=== PATIENT | female | born 1950 | race Caucasian/White ===

== ENCOUNTER → 2020-05-29 10:32 | Outpatient (CLI) | payer MEDICARE, BC | END | disposition home or self-care (01) | LOC: D.HCCARDIO 10:32 | PROVIDERS: ATTEND Internal Medicine Cardiovascular Disease | DX: I25.10 Atherosclerotic heart disease of native coronary artery without angina pectoris (principal) ==

== ENCOUNTER 2020-06-21 07:13 | Day surgery (SDC) | payer MEDICARE, BC ==
[~2020-06-21] VITALS: Ht 149.9 cm; Wt 89.1 kg
--- NOTE | ~2020-06-21 | HEMODYNAMI ---
PATIENT:UMAIR PATE MEDICAL RECORD: [id number] : 52 LOCATION:[facility] ADMISSION DATE: 06/21/20 Generatedon:06/21/20209:51 Patient name: UMAIR PATE Patient #: [id number] SSN: : 1950 Date of study: 06/21/2020 Page: Of Hemodynamic Procedure Report Patient Data Patient Demographics Procedure consent was obtained First Name: UMAIR Gender: Female Last Name: HERLINDA : 1950 Patient #: [id number] Age: 69 year(s) Race: Additional ID: [id number] Contact details [address]: [address] [place] [address] State: [place] City: [place] Zip code: [address] Past Medical History Allergies Allergen Reaction Date Comments Reported Other allergy 06/21/2020 CIPROFLOXACIN, IODINE, KEFLEX, LEVAQUIN Admission Admission Data Admission Date: 06/21/2020 Admission Time: 7:13 Arrival Date: 06/21/2020 Arrival Time: 0:00 Height (in.): 60 BSA: 1.84 (m2) Height (cm.): 152.4 BMI: 37.89 (kg/m2) Weight (lbs.): 194 Weight (kg.): 88 Lab Results Lab Result Date: 06/21/2020 Lab Result Time: 0:00 Biochemistry Name Units Result Min Max BUN mg/dl 27 --(----)-* 7 18 Creatinine mg/dl 1.2 --(---*)-- 0.6 1.3 eGFR ml/min 47 *-(----)-- 90 120 NONAFRICAN CBC Name Units Result Min Max Hematocrit % 39.7 -*(----)-- 42 54 Hemoglobin g/dl 12.6 -*(----)-- 13.5 17.5 Procedure Procedure Types Cath Procedure Diagnostic Procedure [facility] w/Coronaries Sedation Charges Moderate Sedation up to 30 minutes PCI Procedure Coronary Stent Coronary Stent Initial Hemochron ACT Test Procedure Description Procedure Date Procedure Date: 06/21/2020 Procedure Start Time: 9:20 Procedure End Time: 9:49 Procedure Staff Name Function Jaylon Zaldivar MD Performing Physician Karla Gale RT Monitor Jaja Bland RT Scrub Hussain Blackman RN Nurse Procedure Data Cath Procedure Fluoroscopy Diagnostic fluoroscopy Total fluoroscopy Time: 4.1 time: 4.1 min min Diagnostic fluoroscopy Total fluoroscopy dose: 741 dose: 741 mGy mGy Contrast Material Contrast Material Type Amount (ml) Isovue 300 73 Entry Location Entry Primary Successful Side Size Upsize Upsize Entry Closure Succes sful Closure Location (Fr) 1 (Fr) 2 (Fr) Remarks Device Remarks Femoral Right 5 Fr 6 Fr Exoseal artery Short Estimated blood loss: 10 ml Diagnostic catheters Device Type Used For End Catheter Placement MULTIPACK JL 4.0 5Fr Procedure catheter MULTIPACK 3DRC 5Fr Procedure catheter MULTIPACK Pigtail 5 Fr Procedure catheter Procedure Complications No complications Procedure Medications Medication Administration Route Dosage Oxygen etCO2 Nasal cannula 2 l/min Lidocaine 2% added to field 20 Heparin Flush Bag added to field 2 bags (1000units/500ml NS) 0.9% NaCl I.V. 100 ml/hr Zofran I.V. 4 mg Versed I.V. 2 mg Versed I.V. 1 mg Fentanyl I.V. 100 mcg Fentanyl I.V. 50 mcg Heparin Bolus I.V. 8500 units Versed I.V. 1 mg Fentanyl I.V. 50 mcg Hemodynamics Rest BSA: 1.84 (m2) HGB: 12.6 (g/dl) O2 Consumption: Estimated: 197.16 (ml/min) O2 Co nsumption indexed: Estimated:107.15 (ml/min/m) Heart Rate: 108 (bpm) Pressure Samples Time Site Value (mmHg) Purpose Heart Use Rate(bpm) 9:27 LV 156/3,22 Snapshot 88 Gradients Valve Time Site Site Mean SEP/DFP Peak To Heart Use 1 2 (mmHg) (sec/min) Peak Rate (mmHg) (bpm) Aortic 9:28 LV AO 90 Snapshots Pre Cath Intra NCS Post Cath Vital Signs Time Heart Resp SPO2 etCO2 NIBP (mmHg) Rhythm Pain Sedation Rate (ipm) (%) (mmHg) Status Level (bpm) 9:03:14 108 16 95 0 178/86(135) NSR 0 (11) 10(A) , No pain 9:07:50 103 29 93 0 167/84(116) NSR 0 (11) 10(A) , No pain 9:12:27 100 26 93 0 164/76(129) NSR 0 (11) 10(A) , No pain 9:16:55 88 18 93 0 148/72(122) NSR 0 (11) 10(A) , No pain 9:21:21 82 17 93 40.4 150/74(114) NSR 0 (11) 9(A) , No pain 9:25:52 82 31 95 33.7 147/77(120) NSR 0 (11) 9(A) , No pain 9:30:26 88 15 96 37.4 136/73(116) NSR 0 (11) 10(A) , No pain 9:34:52 82 13 96 30.7 145/67(106) NSR 0 (11) 9(A) , No pain 9:39:21 86 15 96 32.2 143/72(97) NSR 0 (11) 10(A) , No pain 9:45:01 84 15 97 36.7 147/71(106) NSR 0 (11) 10(A) , No pain 9:50:16 83 14 98 37.4 145/76(102) NSR 0 (11) 10(A) , No pain Medications Time Medication Route Dose Verified Delivered Reason Notes Effectiveness by by 8:56:18 Oxygen etCO2 2 Jaylon Buffie used for Nasal l/min Zen Blackman RN procedure cannula 8:56:25 Lidocaine 2% added 20ml Jaylon Jaylon for local to vial Zen Zaldivar MD anesthetic field 8:56:35 Heparin Flush added 2 Jaylon Buffie used for Bag to bags Zen Blackman RN procedure (1000units/500ml field NS) 8:56:43 0.9% NaCl I.V. 100 Jaylon Buffie Per physician ml/hr Zen Blackman RN 9:05:09 Zofran I.V. 4 mg Jaylon Buffie Per physician Zen Blackman RN 9:15:50 Versed I.V. 2 mg Jaylon Buffie for sedation Zen Blackman RN 9:15:59 Fentanyl I.V. 100 Jaylon Buffie for sedation [facility] [place] Zen Blackman RN 9:20:51 Versed I.V. 1 mg Jaylon Buffie for sedation Zen Blackman RN 9:21:00 Fentanyl I.V. 50 Jaylon Buffie for sedation mcg Zen Blackman RN 9:32:20 Heparin Bolus I.V. 8500 Jaylon Buffie for verifi ed units Zen Blackman RN anticoagulation with dr zaldivar 9:37:39 Versed I.V. 1 mg Jaylon Buffie for sedation Zen Blackman RN 9:37:43 Fentanyl I.V. 50 Jaylon Buffie for sedation mcg Zen Blackman RN Procedure Log Time Note 8:30:43 Informed consent obtained and on chart 8:42:07 Procedure Status Elective Heart Cath (OP). 8:42:08 Time tracking: Regular hours (M-F 7:00 - 5:00) 8:42:11 Plan of Care:Hemodynamics will remain stable., Cardiac rhythm will remain stable., Comfort level will be maintained., Respiratory function will remain adequate., Patient/ family verbilizes understanding of procedure., Procedure tolerated without complication., Recovers from procedure without complications.. 8:42:12 Hussain Blackman RN sent for patient. Start room use. 8:42:22 H&P Date Dictated: 05/23/2020 Within 30 days and on chart., H&P Addendum completed by physician on day of procedure. (MUST COMPLETE FOR ALL OUTPATIENTS). 8:42:58 Patient allergic to Other allergyCIPROFLOXACIN, IODINE, KEFLEX, LEVAQUIN 8:44:17 Patient Weight : 194 lbs 8:44:43 Patient Height : 60 inches 8:44:48 Arrival Date: 06/21/2020 12:00:00 AM 8:47:48 Lab Result : Creatinine 1.2 mg/dl 8:47:48 Lab Result : BUN 27 mg/dl 8:47:48 Lab Result : eGFR NONAFRICAN 47 ml/min 8:47:48 Lab Result : Hemoglobin 12.6 g/dl 8:47:48 Lab Result : Hematocrit 39.7 % 8:53:53 Patient received from Pre/Post Procedure Room to CCL 2 Alert and oriented. Tansferred to table in Supine position. 8:53:54 Warm blankets applied, and selin hugger turned on for patient comfort. 8:53:59 Correct patient and procedure confirmed by team. 8:56:18 Oxygen 2 l/min etCO2 Nasal cannula was administered by Hussain Blackman RN; used for procedure; Verbal order read back and verified. 8:56:25 Lidocaine 2% 20ml vial added to field was administered by Jaylon Zaldivar MD; for local anesthetic; Verbal order read back and verified. 8:56:35 Heparin Flush Bag (1000units/500ml NS) 2 bags added to field was administered by Hussain Blackman RN; used for procedure; Verbal order read back and verified. 8:56:43 0.9% NaCl 100 ml/hr I.V. was administered by Hussain Blackman RN; Per physician; Verbal order read back and verified. 9:01:48 Vital chart was started 9:01:52 ECG and BP/O2 sat monitors applied to patient. 9:01:55 Baseline sample Acquired. 9:01:59 Rhythm: sinus tachycardia 9:02:04 Full Disclosure recording started 9:02:05 Pre-procedure instructions explained to patient. 9:02:05 Pre-op teaching completed and patient verbalized understanding. 9:02:07 Family in patients room. 9:02:08 Patient NPO since Midnight. 9:02:09 Is the patient allergic to Iodine/contrast media? Yes. 9:02:10 Was the patient premedicated? Yes 9:02:29 Is patient on blood thinner?Yes 9:02:33 ACC The patient was administered the following blood thiners within the last 24 hours: ACCEffient 9:02:40 Patient diabetic? No. 9:02:43 Patient not . Patient is over age 55. 9:02:52 Previous problem with sedation/anesthesia? Yes NAUSEA 9:02:54 Snore? Yes 9:02:56 Sleep apnea? Yes 9:02:57 Deviated septum? No 9:02:57 Opens mouth fully? Yes 9:02:58 Sticks out tongue? Yes 9:03:01 Airway obstruction? No ? 9:03:03 Dentures? No ? 9:03:06 Pre procedure: right dorsailis pedis pulse 1+ Palpable, but thready & weak; easily obliterated 9:03:17 IV patent on arrival in left hand with 0.9% NaCl at [facility]. 9:03:19 Lab results completed and on chart. 9:03:23 Right groin area was prepped with chlora-prep and draped in sterile fashion 9:03:24 Alarms reviewed by RPhil N. 9:03:25 Sharps counted by scrub and verified by R.N. 9:03:44 Pt reports that when they called and told her stress test results that she may have a blockage that she started to take her effient daily again. States that she has taken it for [address] Zaldivar notified. 9:05:09 Zofran 4 mg I.V. was administered by Hussain Blackman RN; Per physician; Verbal order read back and verified. 9:07:59 Use device set Femoral Dx 9:08:01 ACIST Syringe (88609) opened to sterile field. 9:08:01 Bag Decanter (2002S) opened to sterile field. 9:08:02 ACIST Hand Control (25195) opened to sterile field. 9:08:02 ACIST Manifold (40209) opened to sterile field. 9:08:03 Tegaderm 4 x 4 (1626W) opened to sterile field. 9:08:05 Medline Cath Pack ([id number]) opened to sterile field. 9:08:06 DIAGNOSTIC Multipack 5Fr catheter set (HR7575) opened to sterile field. 9:08:07 SHEATH 5FR [place] (OOQ449) opened to sterile field. 9:08:07 EMERALD Guide Wire (282-439) opened to sterile field. 9:14:26 --------ALL STOP TIME OUT------ 9:14:26 Final Timeout: patient, procedure, and site verified with staff and physician. All members of the team are in agreement. 9:14:35 Right groin site verified by team. 9:14:38 Fire Safety Assessment: A--An alcohol-based skin anteseptic being used preoperatively., C--Open oxygen or nitrous oxide is being used., D--An ESU, laser, or fiber-optic light is being used. 9:15:01 Physical assessment completed. ASA score P 2 - A patient with mild systemic disease as per Jaylon Zaldivar MD. 9:15:12 3a) 45-59 Moderately reduced kidney function. 9:15:14 Maximum allowable contrast dose (3.7 X eGFR X 0.75)? ml. 9:15:17 Sedation plan: IV Moderate Sedation Medication:Versed, Fentanyl 9:15:50 Versed 2 mg I.V. was administered by Hussain Blackman RN; for sedation; Verbal order read back and verified. 9:15:59 Fentanyl 100 mcg I.V. was administered by Hussain Blackman RN; for sedation; Verbal order read back and verified. 9:19:57 Zero performed for pressure channel P1 9:20:02 Procedure started. 9:20:51 Versed 1 mg I.V. was administered by Hussain Blackman RN; for sedation; Verbal order read back and verified. 9:20:58 Local anesthetic to right femoral artery with Lidocaine 2% by Jaylon Zaldivar MD.INITIAL ACCESS ONLY 9:21:00 Fentanyl 50 mcg I.V. was administered by Hussain Blackman RN; for sedation; Verbal order read back and verified. 9:22:28 A 5 Fr sheath was inserted into the Right Femoral artery 9:22:49 A MULTIPACK JL 4.0 5Fr catheter was advanced over the wire and used for Procedure. 9:24:59 LCA angiography performed. 9:25:02 Catheter exchanged over wire. 9:25:44 A MULTIPACK 3DRC 5Fr catheter was advanced over the wire and used for Procedure. 9:26:31 RCA angiography performed. 9:26:37 Catheter exchanged over wire. 9:26:42 ACCDominant side:Right 9:26:50 A MULTIPACK Pigtail 5 Fr catheter was advanced over the wire and used for Procedure. 9:27:30 LV gram done using LAGUNA 9:27:33 Injector settings: Ml/sec: 10, Volume: 20, 9:28:00 LV hemodynamics recorded. 9:28:19 EF : 55 % 9:29:01 Catheter removed. 9:29:22 SHEATH 6FR [place] (NFS667) opened to sterile field. 9:29:22 INFLATOR Merit BasixCompak (PY3502) opened to sterile field. 9:29:23 TUBING High Pressure Extension Tubing (Zen) ([id number]) opened to sterile field. 9:29:23 BMW 300cm Straight Pipestem 2 wire ([id number]) opened to sterile field. 9:30:38 Sheath upsized to a 6 Fr Short. 9:30:59 GUIDE 6FR 3DRC catheter ([id number]) opened to sterile field. 9:31:13 Pre PCI Site: [place] RCA has 80% stenosis. 9:31:23 ACC Pre-intervention ROSA Flow is 3. 9:31:33 6 Fr 3DRC guide catheter was inserted over the wire 9:32:20 Heparin Bolus 8500 units I.V. was administered by Hussain Blackman RN; for anticoagulation; verified with dr zaldivar Verbal order read back and verified. 9:33:00 BMW 300 wire advanced. 9:34:51 Wire advanced across lesion. 9:37:39 Versed 1 mg I.V. was administered by Hussain Blackman RN; for sedation; Verbal order read back and verified. 9:37:43 Fentanyl 50 mcg I.V. was administered by Hussain Blackman RN; for sedation; Verbal order read back and verified. 9:37:53 Place stent Inflation Number: 1 A TOÑITO RX 3.5 x 26 stent ([id number]) was prepped and advanced across the Mid RCA . The stent was deployed at 14 MARCUS for 0:00 (min:sec) . 9:38:40 Stent catheter was removed intact over wire. 9:38:40 Wire removed. 9:38:42 Guide catheter removed. 9:39:34 EXOSEAL 6Fr (EX600) opened to sterile field. 9:41:10 Sheath removed intact; hemostasis achieved with Exoseal to the Right Femoral artery. 9:41:20 Procedure ended.(Physican Out) 9:42:07 Fluoroscopy time 04.10 minutes. 9:42:11 Fluoroscopy dose: 741 mGy 9:42:11 Flurop Dose total: 741 9:42:23 Dose Area Product 18095 mGy/cm. 9:42:29 Contrast amount:Isovue 300 73ml. 9:42:31 Maximum allowable dose exceeded? No. 9:42:32 Sharps counted by scrub and verified by R.N. 9:42:34 Post-op/insertion site Right Femoral artery dressed using a 4 x 4 and Tegaderm. 9:43:26 Post-procedure physical assessment completed. ASA score P 2 - A patient with mild systemic disease as per Jaylon Zaldivar MD. 9:43:29 Post procedure rhythm: sinus rhythm 9:43:31 Estimated blood loss: 10 ml 9:43:32 Post procedure instruction explained to patient.Patient verbalizes understanding. 9:43:33 Patient needs reinforcement of post procedure teaching. 9:44:04 Procedure type changed to Cath procedure, Diagnostic procedure, LHC, [facility] w/Coronaries, Sedation Charges, Moderate Sedation up to 30 minutes, PCI procedure, Coronary Stent, Coronary Stent Initial, Hemochron ACT Test 9:44:27 Procedure and supply charges have been captured, reviewed, submitted and are correct. 9:44:29 Procedure Complication : No complications 9:44:32 [facility] Findings: MVD- PCI performed (see procedure note) 9:44:33 Operative report dictated upon procedure completion. 9:44:33 See physician's report for complete and final results. 9:47:26 ACT drawn and resulted at out of range high seconds. (normal therapeutic range 180-240 seconds). 9:49:09 Vital chart was stopped 9:49:48 Report given to Pre/Post Procedure Room. 9:49:51 Patient transfered to Pre/Post Procedure Room with Bed. 9:49:53 Procedure ended. 9:49:53 Full Disclosure recording stopped 9:50:22 End room use (Document Last) 9:50:55 End room use (Document Last) 9:51:15 End room use (Document Last) Intervention Summary Intervention Notes Time ActionType Lesion and Equipment Used Action# Pressure Duration Attributes 9:37:53 Place stent Mid RCA TOÑITO RX 3.5 x 1 14 00:00 26 stent ([id number]) Device Usage Item Name Manufacture Quantity Catalog Hospital Part [facility] Lot# / Number Charge Number Stock Stock Serial# Code ACIST Syringe Acist 1 94532 209801 383109 354053 20 (28342) Medical Systems Inc Bag Decanter Microtek 1 2001S 278095 81396 923951 5 (2001S) Medical Inc. ACIST Hand Acist 1 49885 021441 072491 348148 5 Control Medical (42800) Systems Inc ACIST Manifold Acist 1 01710 280204 984758 908424 5 (98622) Medical Systems Inc Tegaderm 4 x 4 3M 1 1626W 626402 395833 594359 5 (1626W) Medline Cath Medline 1 [id number] 520309 16138 254295 5 Pack ([id number]) DIAGNOSTIC Cardinal 1 TH2537 256742 90990 040718 30 Multipack 5Fr Health catheter set (JC5653) SHEATH 5FR Terumo 1 HDM315 083977 571707 268685 5 [place] (WUX073) EMERALD Guide Cardinal 1 502-455 865637 041217 293975 5 Wire (502-455) Health MULTIPACK JL Cardinal 1 903485 5 4.0 5Fr Health catheter MULTIPACK 3DRC Cardinal 1 623150 5 5Fr catheter Health MULTIPACK Cardinal 1 893765 5 Pigtail 5 Fr Health catheter SHEATH 6FR Terumo 1 [id number] 602924 858685 667468 40 [place] (HNG693) INFLATOR Merit Merit 1 CR2977 482523 830373 348555 15 BasixWhenSoon Medical (KK6924) TUBING High Merit 1 [id number] 499685 19046 534708 10 Pressure Medical Extension Tubing (Zen) ([id number]) BMW 300cm [place] 1 6668075 940788 051388 695927 5 Straight Vascular Pipestem 2 wire (3578811) GUIDE 6FR 3DRC Medtronic 1 [id number] 733448 845263 687079 1 catheter ([id number]) TOÑITO RX 3.5 x Medtronic 1 [id number] 513667 1001885 654156 5 [id number] 26 stent ([id number]) EXOSEAL 6Fr Cardinal 1 EX600 353967 453318 252807 10 (EX600) Health Signature Audit [place] Stage Time Signature Unsigned Intra-Procedure 06/21/2020 Karla Gale 9:50:55 AM RT(R) Intra-Procedure 06/21/2020 Hussain Blackman RN 9:51:15 AM Intra-Procedure 06/21/2020 Jaylon Zaldivar MD 9:51:47 AM [facility] [address] [place] [address]
[2020-06-21] MEDS ORDERED: LOSARTAN/HCT 100-12. PO (07:44)
[2020-06-21] MEDS ORDERED: CARTIA XT240 MG PO (07:45)
[2020-06-21] MEDS ORDERED: OMEPRAZOLE20 M1 PO (07:45)
[2020-06-21] MEDS ORDERED: CATAPRES0.1 MG PO (07:45)
[2020-06-21] MEDS ORDERED: LIPITOR40 MG PO (07:46)
[2020-06-21] MEDS ORDERED: K-TAB10 MEQ PO (07:46)
[2020-06-21] MEDS ORDERED: MULTIGEN FOLIC1 EACH PO (07:48)
[2020-06-21] MEDS ORDERED: EFFIENT10 MG PO (07:48)
[2020-06-21] MEDS ORDERED: LASIX40 MG PO (07:49)
[2020-06-21 07:59] VITALS: BP 166/64; Ht 149.9 cm; Wt 89.1 kg
[2020-06-21] MEDS ORDERED: HUMALOG 30100 UNITS/ SC (08:03)
[2020-06-21 08:40] LABS: HEMATOCRIT 39.7 % (36.0-48.0); HEMOGLOBIN 12.6 g/dL (12-16); LYMPHOCYTES 39.7 % (15-50); MCH 28.4 pg (26.0-34.0); MCHC 31.7 g/dL (31.0-37.0); MCV 89.4 fL (80.0-100.0); MEAN PLATELET VOLUME 9.2 fL (7.4-10.4); NEUTROPHILS 59.4 % (40-80); PLATELET COUNT 302 10x3/uL (130-400); RBC 4.44 10x6/uL (4.00-5.40); RDW 14.3 % (11.5-14.5); WBC 15.3 10x3/uL (4.8-10.8)
[2020-06-21 08:43] LABS: ANION GAP 18.4 mmol/L (8-16); CALCIUM 9.7 mg/dL (8.5-10.1); CARBON DIOXIDE 24.2 mmol/L (21.0-32.0); CHOL - HDL RATIO 1.8 ratio (2.3-4.1); CREATININE - SERUM 1.2 mg/dL (0.6-1.3); LDL-HDL RATIO 0.7 ratio (1.5-3.5); POTASSIUM - SERUM 4.6 mmol/L (3.5-5.1)
--- NOTE | 2020-06-21 10:03 | NUR ---
RECEIVED VIA STRETCHER BACK TO ROOM FOR RECOVERY. PT SLEEPING, BUT VERBALLY AROUSABLE, PT DENIES PAIN OR DISCOMFORT AT THIS TIME. IV PATENT INFUSING VIA ORDERS TO L ARM. R GROIN W 6FR EXOCELE, DRESSING CDI NO S/S HEMATOMA OR BLEEDING NOTED. LEG PINK AND WARM, PEDAL PULSES PALPABLE. PT INSTRUCTED TO KEEP HEAD ON PILLOW AND LEG STRAIGHT, SHE VERBALIZED UNDERSTAND. PT PLACED ON CARDIAC MONITORS AND O2 VIA NC. HR 91, BP 133/61, RR 21, SAT 93. CALL LIGHT IN REACH, AT BS
--- NOTE | 2020-06-21 10:28 | NUR ---
PT RESTING COMFORTABLY. R GROIN SOFT, DRESSING CDI NO S/S HEMATOMA OR BLEEDING. LEG PINK AND WARM, PEDAL PULSES PALPABLE. SIPS OF WATER GIVEN PER PT REQUEST. VSS. CALL LIGHT IN REACH, AT BS.
--- NOTE | 2020-06-21 11:18 | NUR ---
R GROIN SOFT, PT PLACED ON BEDPAN, VOIDED 400CC CLEAR YELLOW URINE. VSS. PT DENIES OTHER NEEDS OR PAIN AT THIS TIME. CALL LIGHT IN REACH
--- NOTE | 2020-06-21 11:46 | NUR ---
PT RESTING COMFORTABLY, TOLERATING PO FLUIDS W/O DIFFICULITY. R GROIN SOFT, DRESSING REMAINS CDI NO S/S HEMATOMA OR BLEEDING NOTED. VSS AT PRESENT, CALL LIGHT IN REACH
--- NOTE | 2020-06-21 12:15 | NUR ---
R GROIN SOFT, DRESSING CDI NO S/S HEMATOMA OR BLEEDING. PT DENIES PAIN OR NEEDS AT THIS TIME. CALL LIGHT IN REACH
--- NOTE | 2020-06-21 12:45 | NUR ---
PT VOIDED ON BP, LINEN CHANGED. HOB ELEVATED SLIGHTLY, SANDWICH TRAY SERVED. R GROIN SOFT, NO S/S HEMATOMA. VSS.
--- NOTE | 2020-06-21 13:18 | NUR ---
PT DOING WELL, TOLERATED LUNCH W/O DIFFICULITY. R GROIN REMAINS SOFT, NO S/S HEMATOMA. VSS, CALL LIGHT IN REACH
--- NOTE | 2020-06-21 13:47 | NUR ---
DISCHARGE INSTRUCTIONS REVIEWED W PT AND , BOTH VERBALIZED UNDERSTANDING. INTRUCTED ON STARTING EFFIENT BACK TOMORROW. IV REMOVED W CATH INTACT, MONITORS REMOVED. GROIN REMAINS SOFT, WITH NO S/S HEMATOMA. PT UP TO DRESS FOR DISCHARGE
--- NOTE | 2020-06-21 14:01 | NUR ---
PT TO BR VIA WC, VOIDING W/O DIFFICULITY. PT THEN DISCHARGE VIA WC TO WAITING IN PRIVATE VEHICLE. PT HAD ALL BELONGINGS AND DISCHARGE PAPERWORK
== END 2020-06-21 14:00 | disposition home or self-care (01) ==
LOC: D.CATH 07:13
PROVIDERS: ATTEND Internal Medicine Cardiovascular Disease
DX: I25.119 Atherosclerotic heart disease of native coronary artery with unspecified angina pectoris (principal); R94.39 Abnormal result of other cardiovascular function study; I10 Essential (primary) hypertension
CPT/HCPCS: 93458; C9600

== ENCOUNTER → 2021-02-05 13:47 | Outpatient (CLI) | payer MEDICARE, BC ==
[2020-06-21 07:59] VITALS: BMI 39.7
[~2021-02-05 13:47] MED LIST: CARTIA XT240 MG PO; CATAPRES0.1 MG PO; EFFIENT10 MG PO; HUMALOG 30100 UNITS/ SC; K-TAB10 MEQ PO; LASIX40 MG PO; LIPITOR40 MG PO; LOSARTAN/HCT 100-12. PO; MULTIGEN FOLIC1 EACH PO; OMEPRAZOLE20 M1 PO
== END | disposition home or self-care (01) ==
LOC: D.HCCECHO 12:30
PROVIDERS: ATTEND Internal Medicine Cardiovascular Disease
DX: I25.10 Atherosclerotic heart disease of native coronary artery without angina pectoris (principal)